=== PATIENT | male | born 2000 | race Caucasian/White ===

== ENCOUNTER 2021-04-12 16:04 | Emergency (ER) | payer MEDICAID, OTHER ==
[2021-04-12] MEDS ORDERED: Lidocaine 1% 10 ML MDV INJECT ONE (16:22)
--- NOTE | 2021-04-12 17:05 | EDM.PDOC ---
ED HPI GENERAL MEDICAL PROBLEM - General Chief Complaint: Laceration Stated Complaint: L ARM LAC Time Seen by Provider: 04/12/21 16:16 Source of Information: Reports: Patient, RN Notes Reviewed - History of Present Illness INITIAL COMMENTS - FREE TEXT/NARRATIVE: 20 yr old male suffered lac injury to L mid forearm. States he was cutting vegetables, not paying attention, arm slipped with resultant injury L forearm. Denies any intent for self injury. Left Arm Pain Score (Numeric/FACES): 9 - Related Data Allergies Allergy/AdvReac Type Severity Reaction Status Date / Time No Known Allergies Allergy Verified 04/12/21 16:28 Home Meds: Home Meds . [No Known Home Meds] 04/12/21 [History] Past Medical History - Past Health History Medical/Surgical History: Denies Medical/Surgical History Social & Family History - Tobacco Use Tobacco Use Status *Q: Current Every Day Tobacco User Years of Tobacco use: 3 Packs/Tins Daily: 0.5 - Recreational Drug Use Recreational Drug Use: No ED ROS GENERAL - Review of Systems Review Of Systems: See Below Constitutional: Reports: No Symptoms HEENT: Reports: No Symptoms Respiratory: Reports: No Symptoms Cardiovascular: Reports: No Symptoms GI/Abdominal: Reports: No Symptoms Musculoskeletal: Reports: Other (Lac injury L forearm) Neurological: Denies: Weakness ED EXAM, SKIN/RASH Exam: See Below General Appearance: Alert, No Apparent Distress Head: Atraumatic Neck: Supple Respiratory/Chest: No Respiratory Distress Extremities: Other (4.5 cm shallow but gaping lac L mid volar forearm, 2 short shallow abrasion, superfiscial lac injuries distal to major deep laceration) Neurological: Alert, Oriented, No Motor/Sensory Deficits ED SKIN PROCEDURES - Laceration/Wound Repair Left Anterior Arm Appearance: Linear Distal NVT: Neuro & Vascular Intact Anesthetic Type: Local Local Anesthesia - Lidocaine (Xylocaine): 1% Plain Skin Prep: Saline Lac/Wound length In cm: -45 Suture Size: 3-0 # of Sutures: 11 Suture Type: Nylon Course - Vital Signs Last Recorded V/S: Last Vital Signs Temp 97.8 F 04/12/21 16:16 Pulse 88 04/12/21 16:16 Resp 16 04/12/21 16:16 BP 133/79 04/12/21 16:16 Pulse Ox 100 11/04/21 16:16 - Orders/Labs/Meds Meds: Medications Discontinued Medications Generic Name Dose Route Start Last Admin Trade Name Sofia PRN Reason Stop Dose Admin Lidocaine HCl 10 ml 04/12/21 16:22 Lidocaine 1% 10 Ml Mdv INJECT 04/12/21 16:23 ONETIME ONE Departure - Departure Time of Disposition: 17:01 Disposition: Home, Self-Care 01 Condition: Fair Clinical Impression: Forearm laceration Qualifiers: Encounter type: initial encounter Laterality: left Qualified Code(s): S51.812A - Laceration without foreign body of left forearm, initial encounter - Discharge Information Referrals: PCP,None [Primary Care Provider] - Additional Instructions: Laceration care instr. Stitches can be removed at clinic in 12 days, call for appt. Leave pressure dressing on for 1 to 2 days. Have rechecked any sign of infection. Sepsis Event Note (ED) - Evaluation Sepsis Screening Result: No Definite Risk - Focused Exam Vital Signs: Vital Signs Temp Pulse Resp BP Pulse Ox 04/12/21 16:16 97.8 F 88 16 133/79 100
== END 2021-04-12 17:13 | disposition home or self-care (01) ==
LOC: JD.ED 16:04
DX: S51.812A Laceration without foreign body of left forearm, initial encounter (principal); Z72.0 Tobacco use; W26.0XXA Contact with knife, initial encounter; Y93.G3 Activity, cooking and baking
CPT/HCPCS: 12002; 99282-25